=== PATIENT | male | born 1965 | race Caucasian/White ===

== ENCOUNTER 2019-01-30 09:17 | Emergency (ER) | payer MEDICAID ==
[~2019-01-30] VITALS: Ht 177.8 cm; Wt 102.0 kg
[~2019-01-30 09:17] MED LIST: AMLO10TA8 PO; ATEN50TA41 PO; ATOR20TA37 PO; BUPR150T13 PO; ENAL20TA PO; PSYL0.525 PO; RISP-2 PO; TEMA30CA PO; TRAZ-137 PO; VILA40TA PO
--- NOTE | 2019-01-30 09:50 | NUR ---
pt reports SI with a plan: drink self to . pt reports he has never attempted suidcide in the past and has been feeling suicidal for approx 2 months with worsening SI in the last two weeks. pt reports recent stay in inpatient facility and has not felt any better since discharge from that facility. pt room secured and request placed for sitter.
--- NOTE | 2019-01-30 09:58 | NUR ---
BS REPORT FROM [facility] RN, ASSUME CARE OF PT AT THIS TIME. ONE BELONGING BAG OF CLOTHING PUT IN SECURE LOCKER. URINE COLLECTED/SENT TO LAB BY [facility]. PT RESTING, NAD. SITTER REQUEST TO CHARGE.
[2019-01-30 10:02] VITALS: BP 129/71
--- NOTE | 2019-01-30 10:08 | NUR ---
POC EXPLAINED TO PT. TV REMOTE PROVIDED ON REQUEST. SITTER REQUESTED BY CHARGE. MEAL TRAY ORDERED FOR PT.
[2019-01-30 10:10] LABS: BASOPHILS # (AUTO) 0.06 x10^3/uL (0-0.1); BASOPHILS % (AUTO) 1 % (0-1); EOSINOPHILS # (AUTO) 0.08 x10^3/uL (0-0.4); EOSINOPHILS % (AUTO) 1 % (1-7); LYMPHOCYTES # (AUTO) 2.53 x10^3/uL (1-3.4); LYMPHOCYTES % (AUTO) 30 % (22-44); MD NO; MEAN CORPUSCULAR HEMOGLOBIN 30.3 pg (27.5-34.5); MEAN CORPUSCULAR HGB CONC 33.1 g/dL (33.2-36.2); MEAN CORPUSCULAR VOLUME 91.4 fL (81-97); MEAN PLATELET VOLUME 7.7 fL (7.4-10.4); MONOCYTES # (AUTO) 0.54 x10^3/uL (0.2-0.8); MONOCYTES % (AUTO) 6 % (2-9); NEUTROPHILS # (AUTO) 5.16 x10^3/uL (1.8-6.8); NEUTROPHILS % (AUTO) 62 % (42-75); PLATELET COUNT 283 x10^3/uL (130-400); RED BLOOD COUNT 5.13 x10^6/uL (4.38-5.82); RED CELL DISTRIBUTION WIDTH 13.1 % (9.4-14.8)
[2019-01-30 10:17] LABS: AMPHETAMINE SCREEN, URINE Negative (Negative); BARBITURATE SCREEN, URINE Negative (Negative); BENZODIAZEPINE SCREEN, URINE Negative (Negative); CANNABINOID SCREEN, URINE Negative (Negative); COCAINE SCREEN, URINE Negative (Negative); METHADONE SCREEN, URINE Negative (Negative); OPIATE SCREEN, URINE Negative (Negative)
[2019-01-30 10:20] LABS: ALBUMIN 3.8 g/dL (3.4-5.0); ANION GAP 9 mmol/L (5-15); CALCIUM 8.9 mg/dL (8.5-10.1); CHLORIDE 107 mmol/L (98-107); CREATININE 1.23 mg/dL (0.7-1.3)
[2019-01-30 10:21] LABS: ACETAMINOPHEN < 2 mcg/mL (10-30); SALICYLATE LEVEL < 1.7 mg/dL (2.8-20.0)
--- NOTE | 2019-01-30 10:36 | NUR ---
Left message with [facility] to have patient evaluated.
--- NOTE | 2019-01-30 10:46 | NUR ---
Ghazala called back from [facility] and said patient is an Expansion patient and we need to call [facility].
--- NOTE | 2019-01-30 10:53 | NUR ---
I spoke with Margareth from [facility]. I gave all of paitent information. He said an microfiche duplicator has been notified.
--- NOTE | 2019-01-30 12:04 | NUR ---
MEAL TRAY PROVIDED, PT COOPERATIVE AND PLEASANT.
--- NOTE | 2019-01-30 13:04 | NUR ---
PT RESTING COMFORTABLY, WATCHING TV. CONTINUE TO AWAIT LOCKER ROOM CLERK. SITTER AT DOORWAY.
--- NOTE | 2019-01-30 13:09 | NUR ---
I called [facility] again and spoke with Mary she said she no ETA on the retail analytics manager and the retail analytics manager usually takes a day I told her that we could not hold patient in ER a day for wait for an retail analytics manager she then transfered me to the office. At the [facility] support center I spoke with Chitra [phone] she said that she would talk to her Directior and call me back.
--- NOTE | 2019-01-30 14:38 | NUR ---
With no responce from [facility] I called [facility] at this time.
--- NOTE | 2019-01-30 15:50 | NUR ---
[facility] RECOMMENDING INPT ADMISSION. PT CALM, COOPERATIVE, TALKING WITH SITTER.
[2019-01-30] MEDS ORDERED: METF500T PO (16:39)
[2019-01-30] MEDS ORDERED: LISI-170 PO (16:39)
[2019-01-30] MEDS ORDERED: TOPI25CA PO (16:39)
[2019-01-30] MEDS ORDERED: ASPI81TA45 PO (16:39)
[2019-01-30] MEDS ORDERED: QUET100T4 PO (16:39)
[2019-01-30] MEDS ORDERED: DULO60CA7 PO (16:39)
[2019-01-30] MEDS ORDERED: GABA300C10 PO (16:39)
[2019-01-30] MEDS ORDERED: METO10TA82 PO (16:39)
--- NOTE | 2019-01-30 16:39 | NUR ---
MED LIST OBTAINED FROM PT BELONGINGS, MED REC UPDATED WITH LIST.
--- NOTE | 2019-01-30 17:24 | NUR ---
PACKET FAXED TO [facility], [facility] AND [facility]
--- NOTE | 2019-01-30 18:08 | NUR ---
DINNER MEAL TRAY PROVIDED, SITTER AT DOORWAY. PT CALM, COOPERATIVE WITH CARE. [facility] TO ACCEPT PT AT 2100. AWAITING REPORT TO NURSE.
[2019-01-30] MEDS ORDERED: ZOLPIDEM 5MG TABLET ONE (19:07)
--- NOTE | 2019-01-30 19:16 | NUR ---
RASTA GIVEN PER REQUEST AND ORDER OBTAINED FROM [facility]. REPORT TO [facility] NURSE. SHANDA ARRANGED FOR 2100.
[2019-01-30] MEDS ORDERED: ZOLPIDEM 5MG TABLET PO PRN (19:30)
== END 2019-01-30 20:57 ==
LOC: ED 10:14
DX: F33.9 Major depressive disorder, recurrent, unspecified (principal); R45.851 Suicidal ideations; I10 Essential (primary) hypertension; E78.00 Pure hypercholesterolemia, unspecified
CPT/HCPCS: 36415; 80048; 80307; 82040; 85025; 99285